=== PATIENT | male | born 1960 | race Caucasian/White ===

== ENCOUNTER 2024-07-23 06:18 | Day surgery (SDC) | payer MEDICARE, BC, SELFPAY ==
[2024-07-23] VITALS (21 sets, daily range): BP systolic 98–145; BP diastolic 58–101; PULSE 45–74; RESP 14–16; TEMP 36.1–36.6; O2SAT 93–100; BMI 24.6
[2024-07-23] MEDS: OXYCODONE (CR) 10 MG TAB.ER.12H PO (06:30)
[2024-07-23] MEDS: ACETAMINOPHEN 500 MG TABLET 1000 MG PO (06:30)
[2024-07-23] MEDS: CELECOXIB 200 MG CAPSULE PO (06:30)
[2024-07-23] MEDS: LACTATED RINGERS 1000 ML 1,000 ML 100 ML IV ×2 (06:40→12:40)
[2024-07-23] MEDS: SODIUM CHLORIDE 0.9 % (FLUSH) 10 ML SYRINGE IVF (06:47)
[2024-07-23] MEDS: fentaNYL 100 MCG/2 ML inj IVP (07:05)
[2024-07-23] MEDS: MIDAZOLAM HCL 1 MG/ML inj IVP (07:05)
--- NOTE | 2024-07-23 07:21 | SUR.PREOP ---
TIME?OUT:?704 PT/silvestre dias RN/ katya lagos CRNA?VERIFICATION?OF?SURGICAL?SITE,?PROCEDURE,?AND?CONSENT OBTAINED?PRIOR?TO?INVASIVE?PROCEDURE.
[2024-07-23] MEDS: TRANEXAMIC ACID 100 MG/ML INJ 1000 MG IV (07:35)
[2024-07-23] MEDS: CEFAZOLIN 1 GM inj IVP (07:35)
--- NOTE | 2024-07-23 08:54 | CRLHL7_ITS ---
For Patients: As a result of the Cures Act, medical imaging exams and procedure reports are released immediately into your electronic medical record. You may view this report before your referring provider. If you have questions, please contact your health care provider. INDICATION: Total knee arthroplasty. TECHNIQUE: Two view LEFT knee portable. IMPRESSION : Prosthetic components intact. Patellar resurfacing. Anatomic alignment. No acute osseous lesions. Dictated by Ian Mosqueda MD @ 07/23/2024 10:06:06 AM (Electronically Signed)
--- NOTE | 2024-07-23 08:55 | PM.ORPRC ---
Procedure Note Date of procedure: 07/23/24 Procedure: PREOPERATIVE DIAGNOSIS: Left knee osteoarthritis POSTOPERATIVE DIAGNOSIS: Left knee osteoarthritis NAME OF OPERATION: Left total knee arthroplasty SURGEON: Axel Chambers MD CRAS: Noemi Gannon PA-C ANESTHESIA: Spinal ESTIMATED BLOOD LOSS: 0 mL COMPLICATIONS: None SPECIMENS: None DRAINS: None PREOPERATIVE ANTIBIOTICS: Ancef 1 g IMPLANTS: 1. J&J Attune # 8 posterior stabilized femur 2. # 7 fixed-bearing tibia 3. # 8 posterior stabilized, 5 mm fixed-bearing polyethylene 4. 41 patella INDICATIONS: The patient is a 64-year-old with a longstanding history of severe, unrelenting left knee pain secondary to end-stage (grade IV) left knee osteoarthritis. Despite appropriate nonoperative management, including activity modification, anti-inflammatories, thxq-dbl-likmoaf pain medication, bracing, physical therapy, and injections they continue to have pain and disability. Operative intervention was offered. The risks, benefits and expected outcomes were discussed in detail. These included but were not limited to: Infection, bleeding, injury to blood vessel or nerve, venous thromboembolism. All questions were answered to their satisfaction. Use of an housekeeper/laundry assistant was necessary throughout the case for patient positioning and safety, soft tissue retraction, and closure. PROCEDURE: Spinal anesthesia was administered. The patient was placed supine on the operating table. The housekeeper/laundry assistant made sure the patient was positioned appropriately. The lower extremity was prepped and draped in the usual sterile fashion. The limb was exsanguinated with the Khanh bandage. The pneumatic tourniquet was inflated to 300 mmHg. A standard anterior incision was made with the knee in flexion. Subcutaneous dissection was sharply taken through fascial layer #1. Full-thickness medial and lateral flaps were elevated. The housekeeper/laundry assistant retracted the soft tissues and protected them throughout the case. A standard subvastus approach was made. The patella was subluxed. The infrapatellar fat pad was preserved. The menisci and cruciate ligaments were sharply d?brided. Marginal osteophytes were d?brided with the rongeur. The drill was used to penetrate the femoral canal. The canal was aspirated and irrigated with pulse lavage. The intramedullary femoral guide was placed for a 5-degree valgus cut, removing 10 mm off the distal femur. The saw was used to make the cut. Whitesides line and the trans epicondylar axis were marked. The femoral sizing guide was pinned onto the distal femur. Three degrees of external rotation nicely parallels the transepicondylar axis. Pins were placed for posterior referencing. The four-in-one cutting guide was pinned onto the distal femur. The anterior, posterior, and chamfer cuts were made. The housekeeper/laundry assistant protected the collateral ligaments. The box cutting guide was pinned. The box cuts were made. The boxed trial was placed and was an excellent fit. Drill holes for the lugs were made. Attention was then turned to the proximal tibia. The extramedullary tibial guide was placed for a neutral varus/valgus cut with 5 degrees of posterior slope, removing 2 mm based off the medial tibial surface. The housekeeper/laundry assistant protected the collateral ligaments and the neurovascular bundle. The saw was used to make the cut. Trial components were placed. The knee was nicely balanced in both flexion and extension. The trial components were removed. The tray was placed in appropriate rotation, parallel to our tibial cutting pins. It was pinned by the housekeeper/laundry assistant and the drill and the punch were used. The tray was removed. The punch was used again. We placed a bone plug in the femoral canal. Attention was then turned to the patella. [place] patellar thickness was 24.5 mm. The lobster claw resection guide was used with the 9.5 mm gena. The saw was used to make the cut. Drill holes were made by the housekeeper/laundry assistant. The trial was placed and was an excellent fit. Cancellous surfaces were irrigated with pulse lavage and thoroughly dried by the housekeeper/laundry assistant. We cemented the tibial component, then the femoral component. We impacted the 5 mm polyethylene onto the tibial tray. The knee was brought into full extension. We then cemented the patellar component. Excessive cement was removed. The cement was allowed to harden. The knee was taken through a range of motion and was found to be nicely balanced in both flexion and extension. The patella tracks centrally. The housekeeper/laundry assistant did a three minute dilute Betadine solution soak. The housekeeper/laundry assistant irrigated the wound with 3 liters of normal saline via pulse lavage. The housekeeper/laundry assistant reapproximated the extensor mechanism with #1 Vicryl in an interrupted raekln-kv-rkesw fashion. The housekeeper/laundry assistant then ran the extensor mechanism with a #1 PDO Stratafix. The housekeeper/laundry assistant closed the subcutaneous tissues with a 3-0 Stratafix and the skin with a running 3-0 Stratafix in a subcuticular fashion. Glue was used to seal the skin. The housekeeper/laundry assistant placed a dry dressing. Sponge and needle counts were correct x2. The patient tolerated the procedure well. There were no apparent complications. They were carefully transferred to the hospital bed and taken to the postanesthesia care unit in satisfactory condition. PLAN: The patient will be mobilized with physical therapy. Aspirin will be used for DVT prophylaxis. They will be discharged to home once medically appropriate.
--- NOTE | 2024-07-23 09:25 | W.PM.NB ---
Nerve Block Nerve Block Time Seen by Provider: 07:10 Date Seen: 07/23/24 Type of block requested by surgeon for post-operative analgesia: adductor canal Side: left Time out performed: Yes Verification of patient name: Yes Verification of date of : Yes Site marking: site marked Name of person performing procedure: mantyl Continuous monitoring Was continuous monitoring of O2 sat, B/P, dye machine operator, recorded every 15 minutes?: Yes Procedure Checklist: sterile prep Ultrasound guided. Images saved: Yes Medications given in 5ml increments after negative aspiration: Ropivicaine %: 0.5 mL: 20 Precedex (mcg): 15 Patient tolerated procedure well: Yes Block Charges Block Charge (with Pro Fee): Femoral Nerve Use of Ultrasound Machine for Block: Yes- US Guidance/pain block
--- NOTE | 2024-07-23 09:27 | W.PM.NB ---
Nerve Block Nerve Block Time Seen by Provider: 07:15 Date Seen: 07/23/24 Type of block requested by surgeon for post-operative analgesia: geniculars Side: left Time out performed: Yes Verification of patient name: Yes Verification of date of : Yes Site marking: site marked Name of person performing procedure: mantyl Continuous monitoring Was continuous monitoring of O2 sat, B/P, cardiac exercise specialist, recorded every 15 minutes?: Yes Procedure Checklist: sterile prep and needles Ultrasound guided. Images saved: No Medications given in 5ml increments after negative aspiration: Ropivicaine %: 0.5 mL: 10 Precedex (mcg): 5 Patient tolerated procedure well: Yes Block Charges Block Charge (with Pro Fee): Genicular Nerve Block Use of Ultrasound Machine for Block: No
--- NOTE | 2024-07-23 09:40 | P.ANES_ITS ---
Anesthesia Charges Start Date/Time Anesthesia Start Date: 07/23/24 Anesthesia Start Time: 07:19 Stop Date/Time Anesthesia Stop Date: 07/23/24 Anesthesia Stop Time: 09:41 Coding CPT Codes CPT Codes: ANESTH KNEE ARTHROPLASTY - 54126 ([id number]) P2 - PATIENT W/MILD SYST DISEASE, QZ - SENIOR JAVA PROGRAMMER ANALYST SVC W/O CARBON SETTER BY
--- NOTE | 2024-07-23 09:40 | W.ANESCHARGE ---
Anesthesia Charges Start Date/Time Anesthesia Start Date: 07/23/24 Anesthesia Start Time: 07:19 Stop Date/Time Anesthesia Stop Date: 07/23/24 Anesthesia Stop Time: 09:41 Coding CPT Codes CPT Codes: ANESTH KNEE ARTHROPLASTY - 40094 ([id number]) P2 - PATIENT W/MILD SYST DISEASE, QZ - GERMAN TUTOR SVC W/O SURG TECH BY
[2024-07-23] MEDS: OXYCODONE 5 MG TABLET PO (11:03)
[2024-07-23] MEDS: fentaNYL 100 MCG/2 ML inj 50 MCG IVP ×2 (11:05→11:09)
[2024-07-23] MEDS: HYDROmorphone 0.5 mg/0.5 ml inj IVP (11:20)
[2024-07-23] MEDS: METOCLOPRAMIDE HCL 5 MG/ML INJ 10 MG IVP (11:42)
--- NOTE | 2024-07-23 11:43 | SUR.PHASEII ---
patient unable to get pain under control, shaking, crying, very uncomfortable. see emar for medications administered. anesthesia in room to redo nerve block. dr. serrano aware.
--- NOTE | 2024-07-23 14:17 | SUR.PHASEII ---
Patient returned from PT. Patient passed PT. Patient and family verbalized readiness to be discharged and that he and family had reviewed discharge instructions with previous RN and had no further questions. Patient given anti nausea essential oil patch, ice water, and emesis bag for the ride home.
== END 2024-07-23 14:05 | disposition home or self-care (01) ==
LOC: OR 06:19
PROVIDERS: PCP Family Medicine; Visit Provider Orthopaedic Surgery
PROC: (CPT 27447; principal; 2024-07-23 07:30)
DX: M17.12 Unilateral primary osteoarthritis, left knee (principal); G89.18 Other acute postprocedural pain; R91.1 Solitary pulmonary nodule
CPT/HCPCS: 27447; 01402; 64447; 64454; 73560; 76942; 97110; 97116; 97161; A9270; C1776; J0690; J1100; J1171; J2250; J2371; J2405; J2704; J2765; J2795; J3010; J7120

== ENCOUNTER 2024-07-29 16:19 | Emergency (ER) | payer MEDICARE, BC, SELFPAY ==
[2024-07-29] VITALS (8 sets, daily range): BP systolic 146–162; BP diastolic 82–96; PULSE 68–77; RESP 16; TEMP 36.6; O2SAT 95–98
--- OUTSIDE RECORDS SUMMARY | 2024-07-29 16:20 | XMS_ITS | Clinical Summary ---
Author Organization [facility] [employer] [facility] Address Replaced by [facility] [place] [address] Care Team Providers Care Office Clerk Name Role Phone Paul Mcgraw MD Primary Care Provider [phone] Allergies Active Allergy Reactions Criticality Noted Date Comments [place] Syrup Diarrhea 01/22/2024 Egg Diarrhea 01/22/2024 Lactose Diarrhea 01/22/2024 Medications ketoconazole 2% shampoo (NIZORAL) 2 % shampoo WASH TO AFFECTED AREA ON SCALP 3X WEEKLY IN THE SHOWER. LATHER AND LET SIT FOR SEVERAL MINUTES BEFORE RINSING 2 Active melatonin 3 mg tablet Take 1 Tablet (3 mg) by mouth at bedtime. 0 2 Active metroNIDAZOLE 0.75 % cream APPLY THIN LAYER TO ENTIRE FACE TWICE A DAY 3 Active medication order composer Apply topically to affected area(s) at bedtime. Using a topical antifungal solution on toenails - patient unsure of the name of the product; purchased OTC Active atorvastatin (LIPITOR) 20 mg tabletIndication s:Other hyperlipidemia,E levated coronary artery calcium score Take 1 Tablet (20 mg) by mouth at bedtime. 90 Tablet 3 4 Active vardenafiL (LEVITRA) 20 mg tabletIndication s:Erectile dysfunction of organic origin Take 1 Tablet (20 mg) by mouth once daily if needed for Erectile Dysfunction. Take 1 hour before sexual activity. 12 Tablet 5 4 Active ciclopirox (CICLODAN) 8 % topical solutionIndicati ons:Toenail fungus Apply topically to affected area(s) at bedtime. Apply solution once daily to affected nails with applicator brush, preferably at bedtime or 8 hours before washing; remove with alcohol every 7 days 6.6 mL 11 4 Active traZODone (DESYREL) 50 mg tabletIndication s:Other insomnia Take 1-2 Tablets (50-100 mg) by mouth at bedtime. 60 Tablet 11 4 Active aspirin chewable 81 mg chewable tabletIndication s:Elevated coronary artery calcium score Chew 1 Tablet (81 mg) by mouth once daily with a meal. 4 Active Active Problems Problem Noted Date Diagnosed Date Chronic pain of left knee 03/25/2024 Overview (05/06/2024): March 2024: Left knee cortisone injection by Dr. Hartmann: somewhat brief 50% pain relief. April 2024: Synvisc ONE injection of left knee. DDD (degenerative disc disease), lumbar 06/17/19 21 Back muscle spasm 05/19/2020 Chronic midline low back pain without sciatica 0 05/19/2020 Impingement syndrome of right shoulder 0 Scapular dyskinesis 12/17/2019 Other hyperlipidemia 09/28/2018 Rosacea 09/26/2018 Overview (09/26/2018): Follows with Dermatology for this. 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 08/04/2008 Adjustment disorder with mixed anxiety and depre ssed mood 06/24/2007 Cervicalgia 06/19/2006 Other and unspecified disc disorder of unspecifi ed region 06/19/2006 high frequency / hearing loss 06/19/2006 Encounters Date Type Department Care Team Description 07/28/2024 Refill [facility] [address] [facility] [address] Paul Mcgraw MD Refill Request (Atorvastatin 20mg) 07/23/2024 Orders Only [facility] Scanner 1 scan: (1-Ord) CHASITY PATE KNEE LT 2V, 07/23/2024 07/03/2024 10:55 AM CDT Office Visit [facility] [address] [facility] [address] Paul Mcgraw MD Preoperative Exam (Left knee replacement 07/23) 07/03/2024 Travel 05/05/2024 12:35 PM BAG PRESSER Office Visit [facility] [address] [facility] [address] Harley Hartmann MD Musculoskeletal Problem (Follow-up LEFT Knee pain/Last cortisone injection helped 50% for 1-2 weeks. Then back to the same pain as before.) 05/05/2024 Travel from Last 3 Months Immunizations Immunization Administration Dates Next Due COVID-19 vaccine (Moderna 100mcg/0.5mL) PF, MDV 08/03/2021,03/06/2021 COVID-19 vaccine (Pfizer-Bio NTech 30mcg/0.3mL) PF, MDV 08/19/2020,07/29/2020 Hepatitis A (Adult) 06/19/2006,04/12/1997 Influenza, IIV3 (Age 6-35 mos) 12/18/2017,2008 Influenza, IIV3 (Age >=3 years) 12/19/2012,12/18,02/13/2010 Influenza, IIV4 04/10/2020,04/30/2015 Influenza, IIV4 (=>6mos) MDV 12/19/2016 Influenza, Inactivated IIV3 (Age 65+ Years) Preserv Free 12/18/2023 Influenza,CCIIV4 PRESERV FREE 01/10/2023, 022,04/25/2021 Pneumococcal Conj 20-valent (Prevnar 20) 01/22/2024 RSV, Recombinant ADJ Reconst ituted (Arexvy 120MCG/0.5mL) 01/10/2023 Td (Age >=7 Years) 05/27/2020,04/04/1998 Tdap 05/31/2008 Zoster (Shingrix-RZV, recombinant) 05/27,07/13/2018,06/29/2018,04/10 Family History Medical History Relation Name Comments Cancer Father of pancrea tic cancer at age 77 Other Father blood clots in legs, pancreatic cancer Heart Disease Maternal Grandfather i n 70s of heart disease Heart failure Mother of heart failure at 87 Heart Disease Paternal Uncle 2 uncles d in late 40's Arthritis Sister 1 Sugey bilateral hip r eplacements Other Sister 2 Samara Nguyễn lost contact wi th her Relation Name Status Comments Father Maternal Grandfather Mother (Age 87) Paternal Uncle Sister 1 Sugey Alive Sister 2 Samara Nguyễn Alive Social History Tobacco Use Types Packs/Day Years Used Date Smoking Tobacco: Never Smokeless Tobacco: Never Tobacco Cessation:Counseling Given: Yes Alcohol Use Standard Drinks/Week Comments Yes 2 (1 standard drink = 0.6 oz pur e alcohol) PHQ-2 Answer Date Recorded PHQ-2 TOTAL SCORE 0 01/22/2024 Social Connections Answer Date Recorded Do you often feel lonely or isolated from those around you? 0 01/22/2024 Alcohol Use Answer Date Recorded How often do you have a drink containing alcohol ? 3 07/03/2024 How many drinks containing a lcohol do you have on a typical day when you are drinking? 0 07/03/2024 How often do you have five or more drinks on one occasion? 0 07/03/2024 Financial Resource Strain Answer Date R ecorded Difficulty of Paying Living Expenses 3 01/22/2024 Difficulty of Paying Living Expenses Not on file 01/22/2024 Food Insecurity Answer Date Recorded Do you worry your food will run out before you are able to buy more? 1 01/22/2024 Transportation Needs Answer Date Record ed Does lack of transportation keep you from medica l appointments? 1 01/22/2024 Does lack of transportation keep you from work, meetings or getting things that you need? 1 01/22/2024 Housing Stability Answer Date Recorded What is your housing situation today? 1 01/22/2024 Utilities Answer Date Recorded Do you have trouble paying f or utilities (for example, heat, electricity, water, phone)? 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 Not on file Not on file Not on fi le Retired Not on file Not on file Not on file Obstetrics History Last Filed Vital Signs Vital Sign Reading Time Taken Comments Blood Pressure 130/76 07/03/2024 11:33 AM CDT Pulse 64 07/03/2024 11:03 AM CDT Temperature 36.3 C (97.3 F) 07/03/2024 11:03 AM CDT Respiratory Rate 14 05/09/2017 4:59 PM BAG PRESSER Oxygen Saturation 96% 07/03/2024 11:03 AM CDT Inhaled Oxygen Concentration - - Weight 77.7 kg (171 lb 4.8 oz) 07/03/2024 11:03 AM CDT Height 178 cm (5' 10.08) 07/03/2024 11:03 AM CD T Body Mass Index 24.52 07/03/2024 11:03 AM CDT Plan of Treatment Health Maintenance Due Date Last Done Comments COVID-19 vaccine series ( season) 2024 12/18/2023, 01/22/2023, 01/08/2022, Additional history exists Depression screening for age 12+ 01/21/2025 01/22/2024, 09/03/2022, 05/23/2018, Additional history exists Medicare Wellness for age 65+ 01/22/2025 01/22/2024 BMI (ht and wt on same day) for age 18+ 07/03/2025 07/03/2024, 01/22/2024, 01/15/2023, Additional history exists Lipids for age 45-75 01/21/2029 01/22/2024, 08/17/2022, 05/15/2021, Additional history exists Tetanus booster 05/27/2030 05/27/2020, 05/16, 04/04/1998 Colonoscopy through age 75 12/22/203012/22, 12/22/2020, 12/22/2020, Additional history exists Tdap Completed 05/31/2008 Zoster (shingles) series for age 50+ Completed 05/27/2020, 07/13/2018, 06/29/2018, Additional history exists Hepatitis C screening for ag e 18-79 Completed 05/15/2021, 05/15/2021 RSV vaccine for adults or Completed 01/10/2023 Influenza Vaccine Completed 12/18/2023, , 01/08/2022, Additional history exists Pneumococcal series for age 50+ Completed Procedures Procedure Name Priority Date/Time Associated Diagnosis Comments SCAN-RADIOLOGY REPORT 07/23/2024 12:00 AM CDT LIPID PANEL W REFLEX MEASURED LDL Routine 01/22/2024 10:43 AM CDT Other hyperlipidemia HCV RNA QUANT Routine 05/15/2021 4:13 PM BAG PRESSER Need for hepatitis C screening test COLONOSCOPY DIAGNOSTIC Routine 12/22/2020 10:31 AM CDT Chronic diarrhea Rectal urgency from Last 3 Months or Most Recently Relevant to Health Maintenance Results * SCAN-RADIOLOGY REPORT (07/23/2024 12:00 AM CDT) Anatomical Region Laterality Modality Other us Scanner OTHER Final Result * LIPID PANEL W REFLEX MEASURED LDL (01/22/2024 10:43 AM CDT) CHOLESTEROL, TOTAL 150 <200 mg/dL [facility] HDL CHOLESTEROL 64 > OR = 40 mg/dL [facility] TRIGLYCERIDES 65 <150 mg/dL [facility] LDL-CHOLESTEROL 72 mg/dL (calc) [facility] Comment: Reference range: <100 Desirable range <100 mg/dL for primary prevention; <70 mg/dL for patients with CHD or diabetic patients with > or = 2 CHD risk factors. LDL-C is now calculated using the Tova calculation, which is a validated novel method providing better accuracy than the Friedewald equation in the estimation of LDL-C. Khanh MCCOLLUM et al. DEANNE. 2013;310(19): 4069-3365 (http://education.[employer]INE/faq/MDS021) CHOL/HDLC RATIO 2.3 <5.0 (calc) [facility] NON HDL CHOLESTEROL 86 <130 mg/dL (calc) [facility] Comment: For patients with diabetes plus 1 major ASCVD risk factor, treating to a non-HDL-C goal of <100 mg/dL (LDL-C of <70 mg/dL) is considered a therapeutic option. Blood BLOOD SPECIMEN / Unknown 01/22/2024 10:43 AM CDT 01/22/2024 10:43 AM CDT Paul Mcgraw MD CHEMISTRY Final Resu lt [employer] [facility] [address] [place] [address], [facility] [address] [place] [id number] * HCV RNA QUANT (05/15/2021 4:13 PM BAG PRESSER) [facility] HCV RNA RT-PCR HCV RNA not detected HCV RNA not detected IU/mL 05/18/2021 3:42 PM BAG PRESSER [facility] Blood BLOOD SPECIMEN / Unknown Venipuncture / Unknown 05/15/2021 4:13 PM BAG PRESSER 05/15/2021 4:17 PM BAG PRESSER Narrative [facility] - 05/18/2021 3:42 PM BAG PRESSER Method: Robert HCV Test Paul Mcgraw MD SEND OUTS Final Resu lt [facility] [address] [place] [address], [place] * COLONOSCOPY (12/22/2020 11:11 AM CDT) 12/22/2020 11:1 1 AM CDT Narrative Transcriptions Khanh Calles MD - 12/22/2020 12:14 PM CDT Patient Name: Paul Mack Procedure Date: 12/22/2020 Gender: Male Date of : 1960 Admit Type: Outpatient Procedure: Colonoscopy Proceduralist: Khanh Calles MD , Edita Mckenna (Nurse) Referring MD: Khanh Calles Indications/Pre-Op Diagnosis: Clinically significant diarrhea ofunexplained origin, Last colonoscopy: July 2014 Medications: Fentanyl 200 micrograms IV, Midazolam 4 mgIV, The level of sedation administered wasmoderate Procedure Description: The patient had risks, benefits and alternatives explained to andgave informed consent. The patient had a stable cardiopulmonary status and judged an adequate candidate for conscious sedation. The [id number] was passed through the anus and advanced tothe cecum, identified by appendiceal orifice and ileocecal valve. The colonoscopy was performed without difficulty. The patient toleratedthe procedure well. The quality of the bowel preparation was good. The ileocecal valve, appendiceal orifice, and rectum were photographed. Complications: No immediate complications. Estimated Blood Loss & Specimen: Estimated blood loss: none. Specimen collected - Yes and sent to Laboratory Findings: The perianal and digital rectal examinations were normal. A 3 mm polyp was found in the ascending colon. The polyp was sessile. The polyp was removed with a cold biopsy forceps. Resection and retrieval were complete. The colon (entire examined portion) was significantly redundant. The exam was otherwise without abnormality. Biopsies for histology were taken with a cold forceps from the entire colon for evaluation of microscopic colitis. Impressions/Post-Op Diagnosis: - One 3 mm polyp in the ascending colon, removed with a cold biopsy forceps. Resected and retrieved. - Redundant colon. - The examination was otherwise normal. - Biopsies were taken with a cold forceps from the entire colon for evaluation of microscopic colitis. Recommendation: - Patient has a contact number available for emergencies. The signsand symptoms of potential delayed complications were discussed with the patient. Return to normal activities tomorrow. Written discharge instructions were provided to the patient. - Resume previous diet. - Continue present medications. - Await pathology results. - Repeat colonoscopy for surveillance based on pathology results. - Patient's sedation for a repeat study will require Anesthesia staff assistance. Moderate Sedation: Moderate (conscious) sedation was administered by the endoscopy nurse and supervised by the endoscopist. The following parameters were monitored: oxygen saturation, heart rate, respiratory rate, blood pressure, adequacy of pulmonary ventilation and reponse to care. Please refer to the patient's medical record flowsheets and nursing notes for moderate sedation details. Total physician intraservice time was 29 minutes. Khanh Calles MD 12/22/2020 12:11:48 PM This report has been signed electronically. Note Initiated On: 12/22/2020 11:11 AM Procedure Code(s): --- Professional --- 66816, Colonoscopy, flexible; with biopsy, single or multiple Diagnosis Code(s): --- Professional --- K63.5, Polyp of colon R19.7, Diarrhea, unspecified Q43.8, Other specified congenitalmalformations of intestine CPT copyright 2020 [employer]. All rights reserved. The codes documented in this report are preliminary and upon contract design agent reviewmay be revised to meet current compliance requirements. Scope In: 11:35:06 AM Scope Withdrawal Time 0 hours 9 minutes 10 seconds Scope Out: 12:00:21 PM Khanh Calles MD PROCEDURE ORD Edited Re sult - Final from Last 3 Months or Most Recently Relevant to Health Maintenance Insurance MEDICARE PART A HB ONLY MEDICARE PART B HB ONLY BLUE CROSS LIME BLUE MR PB ONLY BLUE CROSS LIME BLUE HB ONLY * Guarantor: [employer] Account Type Relation to Patient Date of Phone Billing Address [employer] ATTN JONY TORREY [address] [place] [address] * Guarantor: [employer] Account Type Relation to Patient Date of Phone Billing Address [employer] 04/15/[address] [place] [address] Care Teams Office Clerk Relationship Specialty Start Date End Date Paul Mcgraw MD [address] [place] [address] PCP - General Family Practice 09/21/13
--- NOTE | 2024-07-29 16:32 | ED_ITS ---
HPI - General Adult General Chief complaint: Lower Extremity Swelling Stated complaint: blood clot L leg Time Seen by Provider: 07/29/24 16:21 History of Present Illness HPI narrative: Arrives reporting he was diagnosed with a DVT via US prior to arrival. Had left TKA on 02/06, at follow up appointment today US was ordered due to swelling and pain in that extremity. Alert and oriented, ambulatory with walker, ABCs intact. 64-year-old man presenting to the emergency department with concern of a blood clot in the left peroneal veins as described in conversation by drilling engineer. Records also reviewed 6 days ago had a left total knee. Apparently was evaluated in clinic thought to be more swollen than expected and ultrasound ordered prior to presentation to the emergency department for management. No chest pain or shortness of breath. Has been struggling with pain control. Was ultimately switched to Dilaudid. Also I received a call from radiologist to discuss images as noted. Related Data Home Medications ?Medication ?Instructions ?Recorded ?Confirmed acetaminophen 500 mg tablet 1,000 mg PO Q6H PRN 06/22/24 07/29/24 (Tylenol Extra Strength) aspirin 81 mg tablet,delayed 81 mg PO QDAY 06/22/24 07/29/24 release atorvastatin 20 mg tablet 20 mg PO DAILY 06/22/24 07/29/24 ibuprofen 200 mg tablet 400 mg PO Q8H 06/22/24 07/29/24 ketoconazole 2 % shampoo topical 06/22/24 07/29/24 metronidazole 0.75 % topical cream applic topical BID 06/22/24 07/29/24 vardenafil 20 mg tablet 20 mg PO .prn 06/22/24 07/29/24 Previous Rx's ?Medication ?Instructions ?Recorded aspirin 81 mg chewable tablet 81 mg PO BID #60 tabs 07/23/24 sennosides 8.6 mg tablet (Senna 17.2 mg (2 x 8.6 mg) PO BID PRN 07/23/24 Lax) constipation #100 tabs celecoxib 200 mg capsule (Celebrex) 200 mg PO QDAY PRN pain #35 caps 07/24/24 apixaban 5 mg (74 tabs) tablets in See Rx Instructions PO .COMPLEX 07/29/24 a dose pack (Eliquis DVT-PE Treat #74 ea 30D Start) apixaban 5 mg tablet (Eliquis) See Rx Instructions .Route 07/29/24 .COMPLEX 30 days #74 tabs hydromorphone 2 mg tablet 2 mg PO Q6H PRN pain #35 tabs 07/29/24 hydroxyzine pamoate 25 mg capsule 25 mg PO Q6H PRN pain #20 caps 07/30/24 (Vistaril) Allergies Allergy/AdvReac Type Severity Reaction Status Date / Time No Known Drug Allergies Allergy Verified 07/29/24 16:37 Review of Systems Status of ROS: Reports: 6 or more systems reviewed and unremarkable except as noted in History and below [facility] Medical History Chronic pain of left knee ?M25.562 - Pain in left knee (ICD-10) ?G89.29 - Other chronic pain (ICD-10) Rosacea ?L71.9 - Rosacea, unspecified (ICD-10) Cervicalgia ?M54.2 - Cervicalgia (ICD-10) Microhematuria ?R31.29 - Other microscopic hematuria (ICD-10) Pulmonary nodule ?R91.1 - Solitary pulmonary nodule (ICD-10) Primary insomnia ?F51.01 - Primary insomnia (ICD-10) Generalized anxiety disorder ?F41.1 - Generalized anxiety disorder (ICD-10) Adjustment disorder with mixed anxiety and depressed mood ?F43.23 - Adjustment disorder with mixed anxiety and depressed mood (ICD-10) DDD (degenerative disc disease), lumbar ?M51.369 - Other intervertebral disc degeneration, lumbar region without mention of lumbar back pain or lower extremity pain (ICD-10) Chronic midline low back pain without sciatica ?M54.50 - Low back pain, unspecified (ICD-10) ?G89.29 - Other chronic pain (ICD-10) Back muscle spasm ?M62.830 - Muscle spasm of back (ICD-10) Scapular dyskinesis ?G25.89 - Other specified extrapyramidal and movement disorders (ICD-10) Impingement syndrome of right shoulder ?M75.41 - Impingement syndrome of right shoulder (ICD-10) Low back pain ?M54.50 - Low back pain, unspecified (ICD-10) Displacement of cervical intervertebral disc without myelopathy ?M50.20 - Other cervical disc displacement, unspecified cervical region (ICD- 10) Other and unspecified disc disorder of unspecified region ?M51.9 - Unspecified thoracic, thoracolumbar and lumbosacral intervertebral disc disorder (ICD-10) Hyperplastic colon polyp ?K63.5 - Polyp of colon (ICD-10) Other hyperlipidemia ?E78.49 - Other hyperlipidemia (ICD-10) Elevated coronary artery calcium score ?R93.1 - Abnormal findings on diagnostic imaging of heart and coronary circulation (ICD-10) Elevated cholesterol ?E78.00 - Pure hypercholesterolemia, unspecified (ICD-10) Right knee meniscal tear ?S83.206A - Unspecified tear of unspecified meniscus, current injury, right knee, initial encounter (ICD-10) Surgical History History of arthroplasty of left knee (07/23/24) ?Z96.652 - Presence of left artificial knee joint (ICD-10) H/O wisdom tooth extraction ?K08.409 - Partial loss of teeth, unspecified cause, unspecified class (ICD- 10) S/P arthroscopic partial medial meniscectomy of right knee (04/02/19) ?Z98.890 - Other specified postprocedural states (ICD-10) ?Z87.828 - Personal history of other (healed) physical injury and trauma (ICD-10) S/P arthroscopic partial medial meniscectomy of left knee (06/02/10) ?Z98.890 - Other specified postprocedural states (ICD-10) ?Z87.828 - Personal history of other (healed) physical injury and trauma (ICD-10) Social History Narrative: former chewing tobacco Smoking Status: Never smoker Do you use any of these nicotine containing products: None Second hand tobacco smoke exposure: No How often do you have a drink containing alcohol: monthly or less AUDIT-C Alcohol total score: 1 Non-prescribed substance use: denies use Caffeine: Yes Exam Narrative: Exam Narrative: Appears little uncomfortable. Flinches with anticipated touch. Hard of hearing. Left knee with intact surgical incision. Generally moderately swollen from above the knee down to distal foot time. Mild calor. Minimal erythematous. Well-perfused peripherally. Some bruising broadly posterior lateral to the knee in the upper calf. Const: Vital Signs, click to edit/add: Vital Signs - 24 hr 07/29/24 16:30 07/29/24 16:31 07/29/24 16:31 Temperature 97.9 F Pulse Rate 77 75 Pulse Rate [Pulse Oximeter] 68 Respiratory Rate 16 Blood Pressure 162/92 H Blood Pressure [Ri ght Upper Arm] 153/96 H Pulse Oximetry 98 98 97 Oxygen Delivery Me thod Room Air 07/29/24 16:32 07/29/24 16:32 07/29/24 16:45 Temperature Pulse Rate 74 74 69 Pulse Rate [Pulse Oximeter] Respiratory Rate Blood Pressure 146/92 H 146/92 H Blood Pressure [Ri ght Upper Arm] Pulse Oximetry 97 97 95 Oxygen Delivery Me thod 07/29/24 17:00 07/29/24 17:02 07/29/24 17:15 Temperature Pulse Rate 72 75 74 Pulse Rate [Pulse Oximeter] Respiratory Rate Blood Pressure 160/89 H Blood Pressure [Ri ght Upper Arm] Pulse Oximetry 98 96 96 Oxygen Delivery Me thod 07/29/24 17:33 Temperature Pulse Rate Pulse Rate [Pulse Oximeter] 70 Respiratory Rate 16 Blood Pressure Blood Pressure [Ri ght Upper Arm] 148/82 H Pulse Oximetry Oxygen Delivery Me thod Documenting provider has reviewed patient's vital signs: yes Course Vital Signs Vital signs: Initial Vital Signs Pulse Rate 77 07/29/24 16:30 Blood Pressure 162/92 H 07/29/24 16:30 Blood Pressure Mean 115 H 07/29/24 16:30 Pulse Oximetry 98 07/29/24 16:30 Vital Signs Pulse Rate 77 07/29/24 16:30 Blood Pressure 162/92 H 07/29/24 16:30 Pulse Oximetry 98 07/29/24 16:30 Temperature 97.9 F 07/29/24 16:31 Pulse Rate 70 07/29/24 17:33 Respiratory Rate 16 07/29/24 17:33 Blood Pressure 148/82 H 07/29/24 17:33 Pulse Oximetry 96 07/29/24 17:15 Oxygen Delivery Method Room Air 07/29/24 16:31 Medications Administered Medications: Discontinued Medications Generic Name Dose Route Start Last Admin Trade Name Freq PRN Reason Stop Dose Admin Apixaban 10 mg 07/29/24 17:08 07/29/24 17:14 Apixaban 5 Mg Tablet PO 07/29/24 17:09 10 mg ONCE ONE Administration Medical Decision Making MDM Narrative Medical decision making narrative: In area where he has been describing more pain would be consistent with location of clot as noted on ultrasound. Will need to be initiated on anticoagulant. Does not seem to be experiencing infectious or cellulitic change. Will give a dose, initial, of apixaban here in the emergency department INDICATION: Leg pain and swelling TKA 6 days ago TECHNIQUE: Ultrasound venous duplex lower left extremity. Compression venous exam was performed using reynoso-scale, color Doppler, and spectral Doppler analysis. COMPARISON: None. FINDINGS: Sonographic imaging demonstrates the left common femoral, deep femoral, superficial femoral, popliteal, posterior tibial and greater saphenous and the contralateral right common femoral veins to be fully compressible with normal color Doppler blood flow. Noncompressible deep venous thrombosis within the paired left peroneal veins in the mid and lower calf. IMPRESSION: Deep venous thrombosis within the paired left peroneal veins in the mid and lower calf. 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 Discussed options and given a dose of apixaban here in the emergency department. See patient discharge plan for further discussion Perhaps using use Paramjit wraps to help with compression/mobilization of fluid will be more comfortable. Elevate leg as able. Prescription of apixaban appears to be preferred by your insurance, was sent to pharmacy. Of course be seen for marked increase in persistent pain or swelling, fever, increasing shortness of breath or chest pain. Please follow-up with your primary care provider to discuss duration as necessary beyond these 30 days of apixaban. Medical Records Medical records reviewed: Yes I reviewed the patient's medical records Discharge Plan Discharge Clinical Impression: DVT (deep venous thrombosis), Post-op pain Patient Disposition: Home, Self-Care Condition: Stable Additional Instructions: Perhaps using use Paramjit wraps to help with compression/mobilization of fluid will be more comfortable. Elevate leg as able. Prescription of apixaban appears to be preferred by your insurance, was sent to pharmacy. Of course be seen for marked increase in persistent pain or swelling, fever, increasing shortness of breath or chest pain. Please follow-up with your primary care provider to discuss duration as necessary beyond these 30 days of apixaban. Prescriptions: New Eliquis DVT-PE Treat 30D Start 5 mg (74 tabs) tablets,dose pack See Rx Instructions .ROUTE .COMPLEX Qty: 74 0RF Rx Instructions: orally per package directions Eliquis 5 mg tablet See Rx Instructions .ROUTE .COMPLEX 30 Days Qty: 74 0RF Rx Instructions: Take 10 mg p.o. twice daily for 7 days; then take 5 mg p.o. twice daily to complete a total of 30 days No Action hydromorphone 2 mg tablet 2 mg PO Q6H PRN (Reason: pain) Qty: 35 0RF Rx Instructions: d/c Oxycodone while taking hydromorphone acetaminophen [Tylenol Extra Strength] 500 mg tablet 1,000 mg PO Q6H PRN ibuprofen 200 mg tablet 400 mg PO Q8H atorvastatin 20 mg tablet 20 mg PO DAILY vardenafil 20 mg tablet 20 mg PO .prn Patient Comments: [NO ORIGINAL SIG] ketoconazole 2 % shampoo topical metronidazole 0.75 % cream topical BID aspirin 81 mg tablet,delayed release (DR/EC) 81 mg PO QDAY aspirin 81 mg tablet,chewable 81 mg PO BID Qty: 60 0RF sennosides [Senna Lax] 8.6 mg Tablet 17.2 mg PO BID PRN (Reason: constipation) Qty: 100 0RF celecoxib [Celebrex] 200 mg capsule 200 mg PO QDAY PRN (Reason: pain) Qty: 35 0RF Rx Instructions: Celebrex for acute pain 400 mg initially, followed by an additional 200 mg if needed the 1st day. On subsequent days, 200 mg twice daily for 1 week p.r.n., then 200 mg daily p.r.n. hydroxyzine pamoate [Vistaril] 25 mg capsule 25 mg PO Q6H PRN (Reason: pain) Qty: 20 0RF Follow Up/Referrals: Paul Mcgraw MD [Primary Care Provider] - Stand Alone Forms: [facility] Info Instructions
[2024-07-29] MEDS: APIXABAN 5 MG TABLET 10 MG PO (17:14)
--- OUTSIDE RECORDS SUMMARY | 2024-07-29 17:29 | XMS_ITS | Clinical Summary ---
Author Organization [employer] [facility] [employer] [facility] Address [facility] [place] [address] Care Team Providers Care It Security Project Manager Name Role Phone Paul Mcgraw MD Primary Care Provider [phone] Allergies Active Allergy Reactions Criticality Noted Date Comments [place] Syrup Diarrhea 01/22/2024 Egg Diarrhea 01/22/2024 Lactose [...] Type Department Care Team Description 07/28/2024 [facility] [address] [facility] [address] Paul Mcgraw MD Refill Request (Atorvastatin 20mg) 07/23/2024 Orders Only [facility] Scanner 1 scan: (1-Ord) CHASITY PATE KNEE LT 2V, 07/23/2024 07/03/2024 10:55 AM CDT [facility] [address] [facility] [address] Paul Mcgraw MD Preoperative Exam (Left knee replacement 07/23) 07/03/2024 Travel 05/05/2024 12:35 PM PROP SETTER [facility] [address] [facility] [address] Harley Hartmann MD Musculoskeletal Problem (Follow-up LEFT [...] on file Legal Sex Male 5:24 AM PROP SETTER Gender Identity Not on file Sexual Orientation Not on file 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 Khanh MCCOLLUM et al. DEANNE. 2013;310(19): 6513-5827 (http://education.ScoreFeeder/faq/VNU878) CHOL/HDLC RATIO 2.3 <5.0 (calc) [facility] [...] Paul Mcgraw MD CHEMISTRY Final Resu lt [employer] [facility] [address] [place] [address], [facility] [address] [place] [phone] * HCV RNA QUANT (05/15/2021 4:13 PM PROP SETTER) [facility] HCV RNA RT-PCR HCV RNA not detected HCV RNA not detected IU/mL 05/18/2021 3:42 PM PROP SETTER [facility] Blood BLOOD SPECIMEN / Unknown Venipuncture / Unknown 05/15/2021 4:13 PM PROP SETTER 05/15/2021 4:17 PM PROP SETTER Narrative [facility] - 05/18/2021 3:42 PM PROP SETTER Method: Robert HCV Test Paul Mcgraw MD SEND OUTS Final Resu lt [facility] [address] [place] [address], [place] * COLONOSCOPY (12/22/2020 11:11 AM CDT) [...] adequate candidate for conscious sedation. The [id number] was passed through the anus and advanced [...] 11:11 AM Procedure Code(s): --- Professional --- 23441, Colonoscopy, flexible; with biopsy, single or multiple Diagnosis Code(s): --- Professional --- K63.5, Polyp of colon R19.7, Diarrhea, unspecified Q43.8, Other specified congenitalmalformations of intestine CPT copyright 2020 [employer]. All rights reserved. The codes documented in this report are preliminary and upon multi site leasing consultant reviewmay be revised to meet current compliance requirements. Scope In: 11:35:06 AM Scope Withdrawal Time 0 hours 9 minutes 10 seconds Scope Out: 12:00:21 PM Khanh Calles MD PROCEDURE ORD Edited Re sult - Final from Last 3 Months or Most Recently Relevant to Health Maintenance Insurance MEDICARE PART A HB ONLY MEDICARE PART B HB ONLY BLUE CROSS EWIIAAPAAYP BLUE MR PB ONLY BLUE CROSS EWIIAAPAAYP BLUE HB ONLY * Guarantor: BRIANDA AUDIOGR[employer] Account Type Relation to Patient Date of Phone Billing Address [employer] [address] [place] [address] * Guarantor: [employer] Account Type Relation to Patient Date of Phone Billing Address [employer] [address] [place] [address] Care Teams It Security Project Manager Relationship Specialty Start Date End Date Paul Mcgraw MD [address] [place] [address] PCP - General Family Practice 09/21/13
== END 2024-07-29 17:34 | disposition home or self-care (01) ==
LOC: ED 17:27
PROVIDERS: Emergency Provider Family Medicine; PCP Family Medicine
DX: I82.412 Acute embolism and thrombosis of left femoral vein (principal); G89.18 Other acute postprocedural pain; M25.562 Pain in left knee; Z96.652 Presence of left artificial knee joint
CPT/HCPCS: 93971; 99284; A9270